=== PATIENT | male | born 1955 | race Caucasian/White ===

== ENCOUNTER 2021-05-03 20:12 | Inpatient (IN) | payer OTHER ==
[~2021-05-03] VITALS: Ht 182.9 cm; Wt 89.2 kg
[2021-05-03] MEDS ORDERED: MORPHINE SULFATE INJECTION 2 MG/ML SYRG IM ONE (23:00)
[2021-05-03] MEDS ORDERED: MORPHINE SULFATE INJECTION 2 MG/ML SYRG ONE (23:51)
[2021-05-04 00:03] LABS: Basophils # (auto) 0 10 ^3/uL (0-0.2); Basophils % (auto) 0.4 % (0.0-2.0); Eosinophils # (auto) 0.3 10 ^3/uL (0-0.8); Eosinophils % (auto) 3.4 % (0.0-7.0); Hematocrit 48.3 % (41.0-53.0); Hemoglobin 16.4 g/dL (13.5-17.5); Lymphocytes # (auto) 2.1 10 ^3/uL (0.4-5.4); Lymphocytes % (auto) 22.2 % (10.0-50.0); Mean Corpuscular Hemoglobin 32.4 pg (28.0-32.0); Mean Corpuscular Volume 95.5 fL (80.0-100.0); Monocytes # (auto) 0.9 10 ^3/uL (0-1.3); Monocytes % (auto) 9.5 % (0.0-12.0); Neutrophils % (auto) 64.5 % (37.0-80.0); Nucleated Red Blood Cells % 0.2 %; Red Blood Cells 5.06 10^6/uL (4.5-5.90); Red Cell Distribution Width 13.6 % (11.8-14.3); White Blood Cell 9.3 10^3/uL (4.4-10.8)
[2021-05-04 00:57] LABS: Albumin 3.3 g/dL (3.4-5.0); BUN/Creatinine Ratio 21.2; Calcium 9.2 mg/dL (8.5-10.1)
[2021-05-04 01:11] LABS: Bilirubin, Total 0.9 mg/dL (0.2-1.0); Potassium 3.9 mmol/L (3.5-5.1); Total Protein 7.7 g/dL (6.4-8.2)
[2021-05-04] MEDS ORDERED: IOHEXOL 350 MG/ML 100ML IJ ONE (02:07)
[2021-05-04] MEDS ORDERED: ONDANSETRON HCL 4 MG/2 ML VIAL IV ONE (02:15)
[2021-05-04] MEDS ORDERED: SODIUM CHLORIDE 0.9% 1,000 ML IV ONE (02:15)
[2021-05-04] MEDS ORDERED: D5W/SOD CHLO 0.9% 1,000 ML IV SCH (05:45)
[2021-05-04] MEDS ORDERED: ONDANSETRON HCL 4 MG/2 ML VIAL IV PRN (05:45)
[2021-05-04] MEDS ORDERED: ACETAMINOPHEN 325 MG TAB PO PRN (05:45)
[2021-05-04 08:19] LABS: Urine Bacteria FEW /hpf (None Seen); Urine Blood Negative /uL (Negative); Urine Specific Gravity 1.016 (1.001-1.035); Urine WBC 1 /hpf (0 - 3)
[2021-05-04] MEDS: cefTRIAXone 1GM/50ML D5W 50 ML IV SCH (09:33)
[2021-05-04] MEDS: PANTOPRAZOLE 40 MG/10 ML VIAL INJ IV SCH (09:33)
[2021-05-04] MEDS: CARVEDILOL 12.5 MG TAB PO SCH ×2 (09:33→21:47)
[2021-05-04] MEDS: levETIRAcetam 500 MG TAB PO SCH ×2 (09:34→21:47)
[2021-05-04] MEDS: HYDROcodone-ACET 5/325MG TAB PO PRN (09:56)
[2021-05-04] MEDS ORDERED: CLOPIDOGREL BISULFATE 75 MG TAB PO SCH (10:00)
[2021-05-04] MEDS ORDERED: metroNIDAZOLE 500MG/100ML 100 ML IV ONE (11:15)
[2021-05-04] MEDS ORDERED: hydrALAZINE HCL 20 MG/ML VL IV PRN (11:15)
[2021-05-04] MEDS: D5W/SOD CHLO 0.9% 1,000 ML IV SCH (11:37)
[2021-05-04 13:28] VITALS: BP 148/87
[2021-05-04 13:49] VITALS: BP 148/87
[2021-05-04] MEDS ORDERED: HYDR-4833 PO (14:42)
[2021-05-04] MEDS ORDERED: LISI20TA28 PO (14:42)
[2021-05-04] MEDS ORDERED: CLOP75TA70 PO (14:42)
[2021-05-04] MEDS ORDERED: CARV12.544 PO (14:42)
[2021-05-04] MEDS ORDERED: TAMS0.4C36 PO (14:42)
[2021-05-04] MEDS ORDERED: LEVE500T32 PO (14:42)
[2021-05-04] MEDS: PANCREATIC ENZYMES 4200 UNIT CAP PO SCH ×2 (14:45→18:19)
[2021-05-04] MEDS: TAMSULOSIN HYDROCHLORIDE 0.4 MG CAP PO SCH (18:19)
[2021-05-04] MEDS: metroNIDAZOLE 500MG/100ML 100 ML IV SCH (20:09)
[2021-05-04] MEDS: ATORVASTATIN 20 MG TAB PO SCH (21:47)
[2021-05-04 22:06] VITALS: BP 156/93
[2021-05-05] MEDS: D5W/SOD CHLO 0.9% 1,000 ML IV SCH ×2 (01:25→13:55)
[2021-05-05 05:00] VITALS: BP_SYST 141; BP_DIAS 72; BP_DIAS 88
[2021-05-05] MEDS: metroNIDAZOLE 500MG/100ML 100 ML IV SCH ×3 (05:43→19:54)
[2021-05-05] MEDS: ASPirin 81 mg TAB PO SCH (08:19)
[2021-05-05] MEDS: levETIRAcetam 500 MG TAB PO SCH ×2 (08:20→22:12)
[2021-05-05] MEDS: PANCREATIC ENZYMES 4200 UNIT CAP PO SCH ×3 (08:20→18:28)
[2021-05-05] MEDS: cefTRIAXone 1GM/50ML D5W 50 ML IV SCH (08:20)
[2021-05-05] MEDS: PANTOPRAZOLE 40 MG/10 ML VIAL INJ IV SCH (08:21)
[2021-05-05] MEDS: CARVEDILOL 12.5 MG TAB PO SCH ×2 (08:21→22:12)
[2021-05-05] MEDS: ENOXAPARIN SOD 40 MG/0.4 ML SYRINGE SC SCH (08:21)
[2021-05-05 09:00] VITALS: BP 140/85
[2021-05-05 09:43] LABS: Basophils # (auto) 0 10 ^3/uL (0-0.2); Basophils % (auto) 0.2 % (0.0-2.0); Eosinophils # (auto) 0.2 10 ^3/uL (0-0.8); Eosinophils % (auto) 2.2 % (0.0-7.0); Hematocrit 46.8 % (41.0-53.0); Hemoglobin 15.9 g/dL (13.5-17.5); Lymphocytes # (auto) 1.6 10 ^3/uL (0.4-5.4); Lymphocytes % (auto) 15.1 % (10.0-50.0); Mean Corpuscular Hemoglobin 32.3 pg (28.0-32.0); Mean Corpuscular Hgb Conc. 33.9 g/dL (32.0-36.0); Mean Corpuscular Volume 95.2 fL (80.0-100.0); Monocytes # (auto) 1.2 10 ^3/uL (0-1.3); Monocytes % (auto) 11.7 % (0.0-12.0); Neutrophils # (auto) 7.5 10 ^3/uL (1.6-8.6); Neutrophils % (auto) 70.8 % (37.0-80.0); Red Blood Cells 4.91 10^6/uL (4.5-5.90); Red Cell Distribution Width 13.5 % (11.8-14.3); White Blood Cell 10.6 10^3/uL (4.4-10.8)
[2021-05-05 13:00] VITALS: BP 147/85
[2021-05-05 14:46] LABS: INR 1.37 (0.9-1.15); Partial Thromboplastin Time 37.5 sec (23.6-33.0)
[2021-05-05 14:49] LABS: Potassium 4.1 mmol/L (3.5-5.1)
[2021-05-05 14:54] LABS: Albumin 2.9 g/dL (3.4-5.0); BUN/Creatinine Ratio 13.6; Bilirubin, Total 0.6 mg/dL (0.2-1.0); Calcium 8.5 mg/dL (8.5-10.1); Magnesium 2.5 mg/dL (1.6-2.6); Phosphorus 2.4 mg/dL (2.5-4.90)
[2021-05-05 16:55] VITALS: BP 140/90
[2021-05-05] MEDS: TAMSULOSIN HYDROCHLORIDE 0.4 MG CAP PO SCH (18:28)
[2021-05-05 22:08] VITALS: BP 136/86
[2021-05-05] MEDS: ATORVASTATIN 20 MG TAB PO SCH (22:11)
[2021-05-06] MEDS: metroNIDAZOLE 500MG/100ML 100 ML IV SCH ×3 (04:00→20:00)
[2021-05-06] MEDS: D5W/SOD CHLO 0.9% 1,000 ML IV SCH (05:02)
[2021-05-06 05:21] VITALS: BP 143/85
[2021-05-06] MEDS: PANCREATIC ENZYMES 4200 UNIT CAP PO SCH ×3 (07:40→17:34)
[2021-05-06] MEDS: cefTRIAXone 1GM/50ML D5W 50 ML IV SCH (08:23)
[2021-05-06 08:45] VITALS: BP 141/82
[2021-05-06] MEDS: ASPirin 81 mg TAB PO SCH (09:54)
[2021-05-06] MEDS: CARVEDILOL 12.5 MG TAB PO SCH ×2 (09:55→22:02)
[2021-05-06] MEDS: levETIRAcetam 500 MG TAB PO SCH ×2 (09:55→22:02)
[2021-05-06] MEDS: ENOXAPARIN SOD 40 MG/0.4 ML SYRINGE SC SCH (09:55)
[2021-05-06 13:00] VITALS: BP 154/86
[2021-05-06 16:54] VITALS: BP 116/86
[2021-05-06] MEDS: TAMSULOSIN HYDROCHLORIDE 0.4 MG CAP PO SCH (17:34)
[2021-05-06 20:00] VITALS: BP 163/91
[2021-05-06 22:00] VITALS: BP 163/91
[2021-05-06] MEDS: ATORVASTATIN 20 MG TAB PO SCH (22:03)
[2021-05-07] MEDS: metroNIDAZOLE 500MG/100ML 100 ML IV SCH ×3 (04:45→21:32)
[2021-05-07 04:46] VITALS: BP 160/90
[2021-05-07 09:00] VITALS: BP 144/94
[2021-05-07] MEDS: PANCREATIC ENZYMES 4200 UNIT CAP PO SCH ×3 (09:11→18:40)
[2021-05-07] MEDS: cefTRIAXone 1GM/50ML D5W 50 ML IV SCH (09:11)
[2021-05-07] MEDS: ASPirin 81 mg TAB PO SCH (09:13)
[2021-05-07] MEDS: CARVEDILOL 12.5 MG TAB PO SCH ×2 (09:14→21:52)
[2021-05-07] MEDS: levETIRAcetam 500 MG TAB PO SCH ×2 (09:15→21:53)
[2021-05-07] MEDS: ENOXAPARIN SOD 40 MG/0.4 ML SYRINGE SC SCH (09:15)
[2021-05-07 12:54] VITALS: BP 149/93
[2021-05-07 17:06] VITALS: BP 152/96
[2021-05-07] MEDS: TAMSULOSIN HYDROCHLORIDE 0.4 MG CAP PO SCH (18:40)
[2021-05-07 20:00] VITALS: BP 146/99
[2021-05-07] MEDS: ATORVASTATIN 20 MG TAB PO SCH (21:53)
[2021-05-07 22:00] VITALS: BP 146/99
[2021-05-08] VITALS (7 sets, daily range): BP systolic 128–149; BP diastolic 62–96
[2021-05-08] MEDS: metroNIDAZOLE 500MG/100ML 100 ML IV SCH ×3 (04:56→23:20)
[2021-05-08] MEDS: cefTRIAXone 1GM/50ML D5W 50 ML IV SCH (09:24)
[2021-05-08] MEDS: ASPirin 81 mg TAB PO SCH (09:25)
[2021-05-08] MEDS: CARVEDILOL 12.5 MG TAB PO SCH ×2 (09:29→23:21)
[2021-05-08] MEDS: levETIRAcetam 500 MG TAB PO SCH ×2 (09:30→23:21)
[2021-05-08] MEDS: ENOXAPARIN SOD 40 MG/0.4 ML SYRINGE SC SCH (09:30)
[2021-05-08] MEDS: PANCREATIC ENZYMES 4200 UNIT CAP PO SCH ×4 (12:00→23:22)
[2021-05-08] MEDS ORDERED: IOHEXOL 300 MG/ML 100ML BOTTLE IJ ONE (17:41)
[2021-05-08] MEDS: TAMSULOSIN HYDROCHLORIDE 0.4 MG CAP PO SCH (18:00)
[2021-05-08] MEDS: ATORVASTATIN 20 MG TAB PO SCH (23:22)
[2021-05-09 05:00] VITALS: BP 135/86
[2021-05-09] MEDS: metroNIDAZOLE 500MG/100ML 100 ML IV SCH ×3 (05:23→21:18)
[2021-05-09 09:00] VITALS: BP_SYST 110; BP_SYST 136; BP_DIAS 67; BP_DIAS 93
[2021-05-09] MEDS: cefTRIAXone 1GM/50ML D5W 50 ML IV SCH (12:44)
[2021-05-09] MEDS: ASPirin 81 mg TAB PO SCH (12:45)
[2021-05-09 12:52] VITALS: BP_SYST 110; BP_SYST 139; BP_DIAS 69; BP_DIAS 89
[2021-05-09] MEDS: CARVEDILOL 12.5 MG TAB PO SCH ×2 (12:54→21:14)
[2021-05-09] MEDS: levETIRAcetam 500 MG TAB PO SCH ×2 (12:54→21:14)
[2021-05-09] MEDS: PANCREATIC ENZYMES 4200 UNIT CAP PO SCH ×2 (12:55→17:33)
[2021-05-09 16:39] VITALS: BP 152/100
[2021-05-09] MEDS: TAMSULOSIN HYDROCHLORIDE 0.4 MG CAP PO SCH (17:24)
[2021-05-09] MEDS: HYDROcodone-ACET 5/325MG TAB PO PRN (21:14)
[2021-05-09] MEDS: ATORVASTATIN 20 MG TAB PO SCH (21:14)
[2021-05-09 22:00] VITALS: BP 144/99
[2021-05-10] MEDS: metroNIDAZOLE 500MG/100ML 100 ML IV SCH ×3 (03:36→23:05)
[2021-05-10 05:00] VITALS: BP_SYST 121; BP_SYST 139; BP_DIAS 82; BP_DIAS 93
[2021-05-10 09:00] VITALS: BP 131/86
[2021-05-10] MEDS: PANCREATIC ENZYMES 4200 UNIT CAP PO SCH ×3 (10:01→18:13)
[2021-05-10] MEDS: ASPirin 81 mg TAB PO SCH (10:01)
[2021-05-10] MEDS: cefTRIAXone 1GM/50ML D5W 50 ML IV SCH (10:01)
[2021-05-10] MEDS: levETIRAcetam 500 MG TAB PO SCH ×2 (10:02→21:44)
[2021-05-10] MEDS: CARVEDILOL 12.5 MG TAB PO SCH ×2 (10:02→21:43)
[2021-05-10 11:58] LABS: INR 1.04 (0.9-1.15); Partial Thromboplastin Time 23.7 sec (23.6-33.0)
[2021-05-10 13:00] VITALS: BP 134/87
[2021-05-10 17:00] VITALS: BP_SYST 112; BP_SYST 141; BP_DIAS 64; BP_DIAS 83
[2021-05-10] MEDS: TAMSULOSIN HYDROCHLORIDE 0.4 MG CAP PO SCH (18:13)
[2021-05-10] MEDS: ATORVASTATIN 20 MG TAB PO SCH (21:44)
[2021-05-10 21:56] VITALS: BP 163/95
[2021-05-10] MEDS ORDERED: TEMAZEPAM 15 MG CAP ONE (22:44)
[2021-05-11 05:00] VITALS: BP 140/89
[2021-05-11] MEDS: metroNIDAZOLE 500MG/100ML 100 ML IV SCH ×2 (06:41→15:00)
[2021-05-11 09:00] VITALS: BP 133/84
[2021-05-11] MEDS: PANCREATIC ENZYMES 4200 UNIT CAP PO SCH ×3 (09:53→18:22)
[2021-05-11] MEDS: ASPirin 81 mg TAB PO SCH (09:54)
[2021-05-11] MEDS: cefTRIAXone 1GM/50ML D5W 50 ML IV SCH (09:54)
[2021-05-11] MEDS: CARVEDILOL 12.5 MG TAB PO SCH ×2 (09:55→21:09)
[2021-05-11] MEDS: levETIRAcetam 500 MG TAB PO SCH ×2 (09:55→21:09)
[2021-05-11] MEDS ORDERED: LIDOCAINE 2%HCL (LOCAL ANESTH.) INJ 20ML MDV ONE (10:49)
[2021-05-11] MEDS ORDERED: MIDAZOLAM HCL 2MG/2ML 2ml VIAL (1mg/ml) ONE (10:58)
[2021-05-11] MEDS ORDERED: fentaNYL CITRATE 100 MCG/2 ML VL ONE (10:58)
[2021-05-11 13:00] VITALS: BP 120/87
[2021-05-11] MEDS: metroNIDAZOLE 500 MG TAB PO SCH ×2 (16:30→21:09)
[2021-05-11 17:00] VITALS: BP 133/79
[2021-05-11] MEDS ORDERED: metroNIDAZOLE 500 MG TAB PO SCH (18:00)
[2021-05-11] MEDS: TAMSULOSIN HYDROCHLORIDE 0.4 MG CAP PO SCH (18:22)
[2021-05-11] MEDS: ATORVASTATIN 20 MG TAB PO SCH (21:09)
[2021-05-11 22:00] VITALS: BP 147/89
[2021-05-12 05:00] VITALS: BP 143/98
[2021-05-12] MEDS: metroNIDAZOLE 500 MG TAB PO SCH ×3 (05:13→22:22)
[2021-05-12] MEDS: HYDROcodone-ACET 5/325MG TAB PO PRN ×2 (05:13→22:26)
[2021-05-12] MEDS: ASPirin 81 mg TAB PO SCH (08:54)
[2021-05-12] MEDS: cefTRIAXone 1GM/50ML D5W 50 ML IV SCH (08:54)
[2021-05-12] MEDS: PANCREATIC ENZYMES 4200 UNIT CAP PO SCH ×3 (08:55→18:30)
[2021-05-12] MEDS: CARVEDILOL 12.5 MG TAB PO SCH ×2 (08:55→22:22)
[2021-05-12] MEDS: levETIRAcetam 500 MG TAB PO SCH ×2 (08:55→22:23)
[2021-05-12 09:00] VITALS: BP 141/93
[2021-05-12 12:30] VITALS: BP 139/96
[2021-05-12 17:00] VITALS: BP 144/89
[2021-05-12] MEDS: TAMSULOSIN HYDROCHLORIDE 0.4 MG CAP PO SCH (18:30)
[2021-05-12 22:00] VITALS: BP 139/94
[2021-05-12] MEDS: ATORVASTATIN 20 MG TAB PO SCH (22:23)
[2021-05-13 05:00] VITALS: BP 110/72
[2021-05-13] MEDS: metroNIDAZOLE 500 MG TAB PO SCH ×3 (05:55→21:16)
[2021-05-13] MEDS: ASPirin 81 mg TAB PO SCH (08:20)
[2021-05-13] MEDS: PANCREATIC ENZYMES 4200 UNIT CAP PO SCH ×3 (08:30→18:09)
[2021-05-13] MEDS: levETIRAcetam 500 MG TAB PO SCH ×2 (08:45→21:17)
[2021-05-13 09:00] VITALS: BP 123/91
[2021-05-13] MEDS: cefTRIAXone 1GM/50ML D5W 50 ML IV SCH (09:30)
[2021-05-13] MEDS: CARVEDILOL 12.5 MG TAB PO SCH ×2 (09:30→21:15)
[2021-05-13 13:00] VITALS: BP 119/91
[2021-05-13 16:48] VITALS: BP 142/92
[2021-05-13] MEDS: TAMSULOSIN HYDROCHLORIDE 0.4 MG CAP PO SCH (18:10)
[2021-05-13] MEDS: ATORVASTATIN 20 MG TAB PO SCH (21:16)
[2021-05-13 22:00] VITALS: BP 120/90
[2021-05-14 05:00] VITALS: BP 115/76
[2021-05-14] MEDS: metroNIDAZOLE 500 MG TAB PO SCH ×3 (05:16→22:24)
[2021-05-14 09:04] VITALS: BP 115/86
[2021-05-14] MEDS: PANCREATIC ENZYMES 4200 UNIT CAP PO SCH ×3 (10:03→17:22)
[2021-05-14] MEDS: ASPirin 81 mg TAB PO SCH (10:04)
[2021-05-14] MEDS: cefTRIAXone 1GM/50ML D5W 50 ML IV SCH (10:04)
[2021-05-14] MEDS: levETIRAcetam 500 MG TAB PO SCH ×2 (10:05→22:22)
[2021-05-14] MEDS: CARVEDILOL 12.5 MG TAB PO SCH ×2 (10:05→22:23)
[2021-05-14 12:30] VITALS: BP 99/80
[2021-05-14 17:17] VITALS: BP 118/78
[2021-05-14] MEDS: TAMSULOSIN HYDROCHLORIDE 0.4 MG CAP PO SCH (17:22)
[2021-05-14 22:00] VITALS: BP 126/95
[2021-05-14] MEDS: ATORVASTATIN 20 MG TAB PO SCH (22:22)
[2021-05-14] MEDS: HYDROcodone-ACET 5/325MG TAB PO PRN (22:30)
[2021-05-15 05:00] VITALS: BP 137/75
[2021-05-15] MEDS: metroNIDAZOLE 500 MG TAB PO SCH ×3 (06:21→22:04)
[2021-05-15] MEDS: PANCREATIC ENZYMES 4200 UNIT CAP PO SCH ×3 (08:27→16:28)
[2021-05-15] MEDS: cefTRIAXone 1GM/50ML D5W 50 ML IV SCH (08:27)
[2021-05-15] MEDS: ASPirin 81 mg TAB PO SCH (08:28)
[2021-05-15] MEDS: levETIRAcetam 500 MG TAB PO SCH ×2 (08:28→22:04)
[2021-05-15] MEDS: CARVEDILOL 12.5 MG TAB PO SCH ×2 (08:28→22:04)
[2021-05-15 09:00] VITALS: BP 107/70
[2021-05-15 13:00] VITALS: BP 120/81
[2021-05-15] MEDS: TAMSULOSIN HYDROCHLORIDE 0.4 MG CAP PO SCH (15:34)
[2021-05-15 17:00] VITALS: BP 119/82
[2021-05-15 22:00] VITALS: BP 142/89
[2021-05-15] MEDS: ATORVASTATIN 20 MG TAB PO SCH (22:04)
[2021-05-16 05:00] VITALS: BP 126/88
[2021-05-16] MEDS: metroNIDAZOLE 500 MG TAB PO SCH ×3 (05:59→21:53)
[2021-05-16] MEDS: PANCREATIC ENZYMES 4200 UNIT CAP PO SCH ×3 (08:00→17:13)
[2021-05-16] MEDS: cefTRIAXone 1GM/50ML D5W 50 ML IV SCH (08:01)
[2021-05-16] MEDS: ASPirin 81 mg TAB PO SCH (08:01)
[2021-05-16] MEDS: levETIRAcetam 500 MG TAB PO SCH ×2 (08:01→21:54)
[2021-05-16] MEDS: CARVEDILOL 12.5 MG TAB PO SCH ×2 (08:07→21:53)
[2021-05-16 08:30] VITALS: BP 118/81
[2021-05-16 13:00] VITALS: BP 120/76
[2021-05-16 16:51] VITALS: BP 126/74
[2021-05-16] MEDS: TAMSULOSIN HYDROCHLORIDE 0.4 MG CAP PO SCH (17:12)
[2021-05-16] MEDS: ATORVASTATIN 20 MG TAB PO SCH (21:54)
[2021-05-16 22:00] VITALS: BP 121/74
[2021-05-17 05:18] VITALS: BP 119/79
[2021-05-17] MEDS: metroNIDAZOLE 500 MG TAB PO SCH ×2 (06:35→14:00)
[2021-05-17 09:00] VITALS: BP 124/82
[2021-05-17] MEDS: cefTRIAXone 1GM/50ML D5W 50 ML IV SCH (09:43)
[2021-05-17] MEDS: PANCREATIC ENZYMES 4200 UNIT CAP PO SCH ×2 (09:43→12:37)
[2021-05-17] MEDS: ASPirin 81 mg TAB PO SCH (09:43)
[2021-05-17] MEDS: CARVEDILOL 12.5 MG TAB PO SCH (09:44)
[2021-05-17] MEDS: levETIRAcetam 500 MG TAB PO SCH (09:48)
[2021-05-17 12:02] VITALS: BP 124/82
[2021-05-17 13:30] VITALS: BP 122/80
== END 2021-05-17 16:00 | disposition hospice, home (50) | DRG 465 ==
LOC: EDBD 20:12 → ER 20:18 → OVERFLOW 05-04 05:33 → WEST WING 05-04 12:07
PROVIDERS: ADMIT Nurse Practitioner; ATTEND Family Medicine
PROC: 0T9130Z Drainage of Left Kidney with Drainage Device, Percutaneous Approach (ICD-10-PCS; principal; 2021-05-11)
DX: N13.30 Unspecified hydronephrosis (principal); D68.69 Other thrombophilia; K83.8 Other specified diseases of biliary tract; K86.1 Other chronic pancreatitis; I10 Essential (primary) hypertension; N40.1 Benign prostatic hyperplasia with lower urinary tract symptoms; R33.8 Other retention of urine; G40.909 Epilepsy, unspecified, not intractable, without status epilepticus; Z20.822 Contact with and (suspected) exposure to COVID-19; Z86.73 Personal history of transient ischemic attack (TIA), and cerebral infarction without residual deficits; E78.5 Hyperlipidemia, unspecified
CPT/HCPCS: 10022; 36415; 50432; 71045; 74150; 74177; 74178; 74181; 76775; 77012; 80053; 80061; 81001; 82306; 83036; 83690; 83735; 83880; 84100; 84484; 85025; 85379; 85610; 85730; 87426; 93005; 96361; 96365; 96367; 96372; 96375; 97110; 97530; C1729; C9113; G0378; J0696; J2250; J2405; J3490; J7042